=== PATIENT | female | born 1970 | race Caucasian/White ===

== ENCOUNTER 2024-09-27 04:31 | Emergency (ER) | payer MEDICAID | END 2024-09-27 05:24 | disposition left against medical advice (07) | LOC: ER 04:31 | DX: T23.029A Burn of unspecified degree of unspecified single finger (nail) except thumb, initial encounter (principal); Z53.21 Procedure and treatment not carried out due to patient leaving prior to being seen by health care provider; X58.XXXA Exposure to other specified factors, initial encounter; Y93.9 Activity, unspecified; Y92.89 Other specified places as the place of occurrence of the external cause; Y99.8 Other external cause status ==